=== PATIENT | female | born 1975 | race Caucasian/White ===

== ENCOUNTER → 2017-09-19 | Outpatient (CLI) | payer OTHER ==
[2017-09-19 12:50] LABS: HEMATOCRIT 35.2 % (36.0-47.0); HEMOGLOBIN 11.4 g/dl (12.0-15.5); MEAN CORPUSCULAR HGB CONC 32.4 g/dl (32.0-36.5); MEAN CORPUSCULAR VOLUME 83.4 fl (80.0-96.0); PLATELET COUNT, AUTOMATED 282 10^3/uL (150-450); RED BLOOD COUNT 4.22 10^6/uL (4.00-5.40); RED CELL DISTRIBUTION WIDTH 13.7 % (11.5-14.5); WHITE BLOOD COUNT 9.9 10^3/uL (4.0-10.0)
[2017-09-19 12:51] LABS: ADD MANUAL DIFFER YES; DIFF SLIDE NUMBER 200; POSITIVE DIFF POS FLAG
[2017-09-19 13:14] LABS: ANISOCYTOSIS 1+; BASOPHILS 2 % (0-4); EOSINOPHILS 4 % (0-5); LYMPHOCYTES 58 % (16-52); MONOCYTES 5 % (0-8); NEUTROPHILS 31 % (35-75); PLATELET ESTIMATE NORMAL (NORMAL)
[2017-09-19 13:20] LABS: VITAMIN B12 LEVEL 352 PG/ML
[2017-09-19 13:21] LABS: FOLATE 12.1 NG/ML
[2017-09-19 13:23] LABS: ALBUMIN 3.7 GM/DL (3.2-5.2); ALBUMIN/GLOBULIN RATIO 1.06 (1.00-1.93); ALKALINE PHOSPHATASE 106 U/L (45-117); ALT/SGPT 58 U/L (12-78); ANION GAP 8 MEQ/L (8-16); AST/SGOT 32 U/L (7-37); BILIRUBIN,TOTAL 0.4 MG/DL (0.2-1.0); BLOOD UREA NITROGEN 11 MG/DL (7-18); CALCIUM LEVEL 8.8 MG/DL (8.5-10.1); CARBON DIOXIDE LEVEL 29 MEQ/L (21-32); CHLORIDE LEVEL 104 MEQ/L (98-107); CREATININE FOR GFR 0.79 MG/DL (0.55-1.30); GLOMERULAR FILTRATION RATE > 60.0 (>58); GLUCOSE, FASTING 92 MG/DL (70-100); POTASSIUM SERUM 3.6 MEQ/L (3.5-5.1); SODIUM LEVEL 141 MEQ/L (136-145); TOTAL PROTEIN 7.2 GM/DL (6.4-8.2)
[2017-09-19 13:31] LABS: HEPATITIS B SURFACE ANTIGEN NEGATIVE (NEGATIVE)
[2017-09-19 13:59] LABS: HEPATITIS C VIRUS ABY INDEX < 0.0 INDEX (<0.8)
[2017-09-23 00:07] LABS: ANCA-ATYPICAL <1:20 titer (Neg:<1:20); CYTOPLASMIC NEUTROP AB ANCA-C <1:20 titer (Neg:<1:20); HERPES ZOSTER, VARICELLA IgG 631 index (Immune >165); Lyme Disease IgG/IgM Antibodie <0.91 ISR (0.00-0.90); Lyme Disease IgM Ab Quantitati <0.80 index (0.00-0.79); PERINUCLEAR AB ANCA-P <1:20 titer (Neg:<1:20)
[2017-09-23 07:24] LABS: DRVV SCREEN 43.6 SEC
[2017-09-27 00:09] LABS: ANGIOTENSIN 1 CONVERTING ENZYM 50 U/L (14-82); JCV ANTIBODY Positive (.)
== END ==
LOC: M LAB 11:53
DX: G35 Multiple sclerosis (principal)

== ENCOUNTER → 2018-11-04 | Outpatient (CLI) | payer OTHER ==
--- NOTE | 2018-11-06 00:28 | ECWPNPC ---
PATIENT NAME: ANDREW PINK : 1975 GENDER: FEMALE VISIT DATE: 11/04/2018 DISCHARGE DATE: 11/04/18 1408 VISIT LOCKED DATE TIME: PHYSICIAN: VICENTE TORRES RESOURCE: VICENTE TORRES REASON FOR APPOINTMENT 1. MED EVALUATION/ NECK & BACK PAIN HISTORY OF PRESENT ILLNESS PAIN SCREENING: PATIENT HAS A COMPLAINT OF ACUTE OR CHRONIC PAIN :YES 43 YEAR OLD FEMALE IN FOR INITIAL CHRONIC PAIN EVALUATION. SHE HAS A HX OF THORACIC COMPRESSION FX AND MS. WHEN ASKED SHE RATES HER PAIN AT AN 8/10. SHE ADMITS TO TRYING PROCEDURES SUCH RFA, TPI, AND EPIDURALS IN THE PAST AND THEY WERE INEFFECTIVE. SHE WAS REFERRED TO THE PAIN CENTER BY DR. JEFFERY'S OFFICE. FALL RISK SCREENING: SCREENING :NO FALLS REPORTED IN THE LAST YEAR CURRENT MEDICATIONS TAKING AMBIEN 5 MG TABLET 1 TABLET AT BEDTIME ORALLY ONCE A DAY TAKING KEPPRA 500 MG TABLET 1 TABLET ORALLY TWICE A DAY TAKING PERCOCET 10-325 MG TABLET 1 TABLET NEEDED ORALLY EVERY 6 HRS TAKING SOMA 350 MG TABLET 1 TABLET NEEDED ORALLY FOUR TIMES A DAY TAKING XANAX 0.5 MG TABLET 1 TABLET ORALLY TWICE A DAY TAKING ZOLOFT 100 MG TABLET 1 TABLET ORALLY ONCE A DAY TAKING AUBAGIO 7 MG TABLET 1 TABLET ORALLY ONCE A DAY TAKING VITAMIN B12 1000 MCG TABLET EXTENDED RELEASE 1CC INJECTION SUBCUTANEOUSLY MONTHLY MEDICATION LIST REVIEWED AND RECONCILED WITH THE PATIENT PAST MEDICAL HISTORY T12 FRACTURE MILD CERVICAL SPONDYLOSIS C6-7 OSTEOPOROSIS VITAMIN B DEFICIENCY BIPOLAR & MOOD DISORDER WITH DELUSIONS AND HALLUCINATIONS ANXIETY D/O PTSD MS FIBROMYALGIA IBS LEFT FRONTAL LOBE BRAIN DAMAGE DDD GRAND MAL SEIZURES ACUTE MYOCARDIAL INFARCTION ALYSE VIRUS ALLERGIES LATEX (FOR ALLERGY USE ONLY): RASH - ALLERGY PENICILLIN (FOR ALLERGIES USE ONLY): CONVULSIONS - ALLERGY TRAMADOL HCL: FEELS LIKE BUGS CRAWLING - ALLERGY KETOROLAC TROMETHAMINE: FEELS LIKE BUGS CRAWLING - ALLERGY SURGICAL HISTORY HYSTERECTOMY 2008 LEFT KNEE REPAIR FAMILY HISTORY FATHER: ALIVE, DIAGNOSED WITH DIABETES, STROKE MOTHER: ALIVE, OTHER 1 BROTHER(S) , 1 SISTER(S) - HEALTHY. 4 SON(S) - HEALTHY. SIBLINGS-BIPOLAR. SOCIAL HISTORY GENERAL: TOBACCO USE ARE YOU A:NONSMOKER PAIN CLINIC PFS, CLERGY, PUBLIC HEALTH REFERRALS HAS THE PATIENT BEEN EDUCATED REGARDING HIS/HER PLAN OF CARE?YES HAS THE PATIENT BEEN EDUCATED REGARDING PAIN, THE RISK FOR PAIN, THE IMPORTANCE OF EFFECTIVE PAIN MANAGEMENT, AND THE PAIN ASSESSMENT PROCESS?YES ADVANCE DIRECTIVE ADVANCE DIRECTIVE DISCUSSED WITH PATIENT:YES DECLINED EDUCATION LEVEL OF EDUCATION:NOT FINISHED COLLEGE [employer]IANIST [id number] [employer] LANG[employer]AGE LANGUAGES SPOKEN:NEPALESE LEARNING BARRIERS / SPECIAL NEEDS BARRIERS TO LEARNING?NO HEARING IMPAIRED?NO VISION IMPAIRED?YES :CORRECTIVE LENSES COGNITIVELY IMPAIRED?NO READINESS TO LEARN?YES LEARNING PREFERENCES?NO LEARNING CAPABILITIES PRESENT?YES EMOTIONAL BARRIERS?NO SPECIAL DEVICES?NO HOSPITALIZATION/MAJOR DIAGNOSTIC PROCEDURE SURGERY MS STROKE S/S GRAND MAL SEIZURES [facility] ADMISSION IN [place] REVIEW OF SYSTEMS REVIEWED BY: PROVIDER: TYRON TORRES BACK WEDGER-C . CONSTITUTIONAL: ANY CHANGE IN YOUR MEDICAL CONDITION? NO . CHILLS NO . FEVER NO . INFECTION: DO YOU HAVE NEW INFECTIONS? NO . DO YOU HAVE HISTORY OF MRSA? YES, HYSTRECTOMY INCISION RESOLVED . MUSCULOSKELETAL: ANY NEW PATTERNS OF PAIN OR NUMBNESS? NO . SYTEMIC LUPUS NO . GASTROENTEROLOGY: ANY NEW CHANGE IN BOWEL CONTROL? NO, IBS . BARRETTS ESOPHAGUS NO . CIRRHOSIS NO . HEPATITIS NO . LIVER FAILURE NO . ACID REFLUX NO . UNEXPLAINED WEIGHT LOSS NO . GENITOURINARY: ANY NEW CHANGE IN BLADDER CONTROL? NO . IS THERE A CHANCE YOU COULD BE ? NO . HEMATOLOGY/LYMPH: DO YOU TAKE ANY BLOOD THINNERS? (FOR EXAMPLE- COUMADIN, PLAVIX, AGGRENOX, PLATEL, PRADAXA, OR XARELTO) NO . WHEN WAS YOUR LAST DOSE? DATE: TIME: . LOW PLATELET COUNT NO . SICKLE CELL DISEASE NO . VON WILLIEBRANDS NO . FACTOR V LEIDEN NO . THALLASEMIA NO . ANEMIA NO . EASY BRUISING NO . NEUROLOGY: HAVE YOU FALLEN IN THE PAST 12 MONTHS? YES, FELL 03/2018 IN [place], NOT SURE WHY SHE FELL . ANY NEW EXTREMITY NUMBNESS OR WEAKNESS? NO . HEAD INJURY NO . DEMENTIA NO . CEREBRAL PALSY NO . MULTIPLE SCLEROSIS NO . DIZZINESS NO . HEADACHE NO, GRAND MAL SEIZURES, ANXIETY, PTSD . STROKES NO . VERTIGO NO . CARDIOLOGY: DO YOU HAVE A PACEMAKER OR DEFIBRILLATOR? NO . ANGINA NO . HEART ATTACK YES . HEART SURGERY NO . CONGESTIVE HEART FAILURE/FLUID OVERLOAD NO . CHEST PAIN NO . HIGH BLOOD PRESSURE NO . IRREGULAR HEART BEAT NO . RESPIRATORY: HAVE YOU BEEN SICK IN THE PAST WEEK? NO . FEVER NO . FLU LIKE SYMPTOMS? NO . CPAP NO . BYPAP NO . ASTHMA NO . EMPHYSEMA NO . CHRONIC LUNG DISEASES NO . SHORTNESS OF BREATH ON EXERTION NO . COUGH NO . SNORING NO . INTEGUMENTARY: DO YOU HAVE ANY RASHES OR OPEN SORES? NO . ALLERGIC/IMMUNO: ARE YOU ALLERGIC TO IV DYE? NO . ANY NEW ALLERGIES? NO . PSYCHIATRIC: DO YOU HAVE THOUGHTS OF HURTING YOURSELF OR SOMEONE ELSE? NO . ARE YOU ABUSED, NEGLECTED, OR IN AN UNSAFE ENVIRONMENT? NO . ENDOCRINOLOGY: ARE YOU DIABETIC? NO . THYROID DISORDER NO . OTHER: DO YOU NEED ANY PRESCRIPTIONS? YES, AMBIEN, KEPPRA, OXYCODONE, SOMA, XANAX, ZOLOFT . IF YES, PLEASE LIST: ____ . ANY NEW PROBLEMS WITH YOUR MEDICATIONS? NO . WHEN DID YOU LAST EAT? ____ . WHEN DID YOU LAST DRINK? ____ . WHAT DID YOU LAST DRINK? ____ . NAME OF PERSON DRIVING YOU HOME? ____ . DO YOU HAVE ANY OTHER QUESTIONS OR CONCERNS YES, DR JEFFERY WAS PRESCRIBING FOR PT AND THEN SUDDENLY WAS TOLD TO GO ELSWHERE . VITAL SIGNS WT 206 LBS, HT 64 IN, BMI 35.36 INDEX, BP 127/84 MM HG, HR 73 /MIN, RR 16 /MIN, TEMP 96.9 F, OXYGEN SAT % 98, SAFE IN ENV? (Y/N) YES, REVIEWED BY: EM. EXAMINATION GENERAL EXAMINATION: GENERALNO ACUTE DISTRESS, WELL NOURISHED AND HYDRATED. PSYCHAPPROPRIATE MOOD AND AFFECT . LUNGS:CLEAR TO AUSCULTATION BILATERALLY, NO WHEEZES, RHONCHI, RALES. HEART:NO MURMURS, REGULAR RATE AND RHYTHM. BACK:TENDER FROM THROACIC TO LOWER LUMBAR AREA. SKIN SHOWS NO ERYTHEMA, ECCHYMOSIS, INCREASED WARMTH, AND/OR SKIN ERUPTIONS NOTED. INCREASED PAIN WITH FACET LOADING.. ASSESSMENTS COMPRESSION FRACTURE OF T12 VERTEBRA, INITIAL ENCOUNTER - S22.080A (PRIMARY) TREATMENT COMPRESSION FRACTURE OF T12 VERTEBRA, INITIAL ENCOUNTER CLINICAL NOTES: 43 YEAR OLD FEMALE IN FOR INITIAL PAIN CONSULT. PATIENT HAD BEEN REFERRED HERE FOR MEDICATION MANAGEMENT AND IT WAS EXPLAINED TO HER THAT WE FOCUS MOSTLY ON INTERVENTIONAL PAIN MANAGEMENT. SHE CURRENTLY DOES NOT HAVE A PCP IN THE ARE[place] AND SHE WAS INFORMED THAT IT IS THE POLICY OF THIS OFFICE THAT WE HAVE A WORKING RELATIONSHIP WITH OUR PATIENT'S PCP THEY WOULD TAKE OVER THE MEDICATION AFTER INITIAL CONSULT. GENTLEMAN ACCOMPANYING PATIENT BECAME AGITATED WHEN HE LEARNED THIS COMMUNICATIONS MAINTAINER WOULD NOT BE ABLE TO PRESCRIBE MEDICATION FOR PATIENT AND THEY WERE GIVEN THE NUMBERS FOR CLINICS AROUND THE AREA TO HELP WITH ESTABLISHING A PCP. PROCEDURES WERE DISCUSSED WITH PATIENT AND SHE WOULD LIKE TO CONSIDER A FACET BLOCK IN THE FUTURE. REFERRAL TO PALLIATIVE CARE WAS DISCUSSED AND PATIENT WOULD LIKE TO PROCEED. INFORMED THEM A REFERRAL WOULD BE SENT. PATIENT HAS EXPRESSED UNDERSTANDING OF AND WAS IN AGREEMENT WITH TX PLAN. GIVEN TIME TO ASK QUESTIONS AND EXPRESS CONCERNS. , ISTOP REGISTRY REVIEWED AND DEMONSTRATES COMPLLIANCE. (REF _# [id number] ) BRINGS IN MEDICATIONS WHICH IS APPROPRIATE FOR WHAT WAS DISPENSED. RECENT URINE TOXICOLOGY REVIEWED. NO UNAUTHORIZED MEDICATIONS. NO ILLICIT SUBSTANCES AND PRESCRIBED MEDICATIONS WERE PRESENT. PREVENTIVE MEDICINE PAIN CLINIC TEACHING: PROCEDURE TEACHING FACET BLOCK HANDOUT PRINTED, REVIEWED AND GIVEN TO PT. EM. PROCEDURE CODES FA211 ESTABILISHED PATIENT [facility] CHARGE DISPOSITION & COMMUNICATION ELECTRONICALLY SIGNED BY MAYTE QUEZADA ON 11/05/2018 AT 08:56 AM EDT DISCLAIMER : THIS IS A VISIT SUMMARY EXTRACTED FROM THE [employer] CHART. IT IS NOT A COPY OF THE [employer] PROGRESS NOTE. DEVAN
== END ==
LOC: M PAIN 13:00
PROVIDERS: ATTEND Family Medicine
DX: S22.080A Wedge compression fracture of T11-T12 vertebra, initial encounter for closed fracture (principal); X58.XXXA Exposure to other specified factors, initial encounter; Y92.9 Unspecified place or not applicable; M47.812 Spondylosis without myelopathy or radiculopathy, cervical region; M81.0 Age-related osteoporosis without current pathological fracture; E53.8 Deficiency of other specified B group vitamins; F31.9 Bipolar disorder, unspecified; F41.9 Anxiety disorder, unspecified; M79.7 Fibromyalgia; F43.10 Post-traumatic stress disorder, unspecified; K58.9 Irritable bowel syndrome, unspecified; I25.2 Old myocardial infarction; Z87.820 Personal history of traumatic brain injury; Z79.891 Long term (current) use of opiate analgesic; Z88.0 Allergy status to penicillin; Z88.5 Allergy status to narcotic agent; Z88.8 Allergy status to other drugs, medicaments and biological substances; Z91.040 Latex allergy status